=== PATIENT | female | born 1985 | race Asian ===

== ENCOUNTER 2019-06-06 12:16 | Emergency (ER) | payer MEDICAID ==
--- NOTE | 2019-06-06 12:24 | EDM.PDOC ---
ED HPI GENERAL MEDICAL PROBLEM - General Chief Complaint: General Stated Complaint: DIZZINESS, SOB Time Seen by Provider: 06/06/19 12:24 Source of Information: Reports: Patient History Limitations: Reports: No Limitations - History of Present Illness INITIAL COMMENTS - FREE TEXT/NARRATIVE: HISTORY AND PHYSICAL: History of present illness: Patient is a 33-year-old female presents to the ED with complaint of dizziness, chest pain, and shortness of breath since this morning. She states she has boils on her left arm x 3 weeks which she has been treating with topical tumeric paste. She states they have not drained but are painful. She reports subjective fevers. Denies significant past medical history. Denies illicit drug use. Review of systems: As per history of present illness and below otherwise all systems reviewed and negative. Past medical history: As per history of present illness and as reviewed below otherwise noncontributory. Surgical history: As per history of present illness and as reviewed below otherwise noncontributory. Social history: No reported history of drug or alcohol abuse. Family history: As per history of present illness and as reviewed below otherwise noncontributory. Physical exam: General: Patient sitting comfortably in no acute distress and nontoxic appearing HEENT: Atraumatic, normocephalic, pupils reactive, negative for conjunctival pallor or scleral icterus, mucous membranes moist, throat clear, neck supple, nontender, trachea midline. No meningeal signs. Lungs: Clear to auscultation, breath sounds equal bilaterally, chest nontender. Heart: S1S2, regular, negative for clicks, rubs, or overt murmur. Abdomen: Soft, nondistended, nontender. Negative for masses or hepatosplenomegaly. Negative for costovertebral tenderness. No rigidity, rebound , guarding. Pelvis: Stable nontender. Genitourinary: Deferred. Rectal: Deferred. Extremities: There is a fluctuant area to the left forearm just lateral and inferior to the antecubital fossa. Minimal surrounding erythema. Atraumatic, negative for cords or calf pain. Neurovascular unremarkable. Neuro: Awake, alert, oriented. Cranial nerves II through XII unremarkable. Cerebellum unremarkable. Motor and sensory unremarkable throughout. Exam nonfocal. Notes: Nursing staff and cardiac cath lab technologist were unable to get a blood draw. Patient is refusing further attempts at this time. Diagnostics: CBC, CMP, troponin, EKG, CXR, UA, urine hcg left forearm x-ray Therapeutics: Prescriptions: Bactrim Impression: Abscess, cellulitis Plan: Take antibiotic as instructed Follow-up with primary care provider Return to ED as needed as discussed Definitive disposition and diagnosis as appropriate pending reevaluation and review of above. - Related Data Allergies Allergy/AdvReac Type Severity Reaction Status Date / Time No Known Allergies Allergy Verified 06/06/19 12:18 Home Meds: Home Meds ARIPiprazole [Abilify] 10 mg PO DAILY 06/06/19 [History] Citalopram [Citalopram HBr] 40 mg PO DAILY 06/06/19 [History] Gabapentin [Neurontin] 300 mg PO BID 06/06/19 [History] Lisdexamfetamine Dimesylate [Vyvanse] 60 mg PO DAILY 06/06/19 [History] Sulfamethoxazole/Trimethoprim [Bactrim Ds Tablet] 1 each PO BID 7 Days #14 tablet 06/06/19 [Rx] ED ROS GENERAL - Review of Systems Review Of Systems: ROS reveals no pertinent complaints other than HPI. ED EXAM, GENERAL - Physical Exam Exam: See Below (see dictation) Course - Vital Signs Last Recorded V/S: Last Vital Signs Temp 97.6 F 06/06/19 12:20 Pulse 100 06/06/19 12:20 Resp 20 06/06/19 12:20 BP 162/99 H 06/06/19 13:30 Pulse Ox 100 06/06/19 12:20 - Orders/Labs/Meds Orders: Active Orders 24 hr Category Date Time Status EKG Documentation Completion [RC] STAT Care 06/06/19 12:21 Active CBC WITH AUTO DIFF [HEME] Stat Lab 06/06/19 12:29 Ordered COMPREHENSIVE METABOLIC PN,CMP [CHEM] Stat Lab 06/06/19 12:29 Ordered HCG QUALITATIVE,URINE [URCHEM] Stat Lab 06/06/19 13:02 Ordered TROPONIN I [CHEM] Stat Lab 06/06/19 12:29 Ordered UA RFX NIDIA AND CULT IF INDIC [URIN] Stat Lab 06/06/19 13:02 Ordered Sodium Chloride 0.9% [Saline Flush] Med 06/06/19 12:29 Active 10 ml FLUSH ASDIRECTED PRN Sodium Chloride 0.9% [Saline Flush] Med 06/06/19 12:29 Active 2.5 ml FLUSH ASDIRECTED PRN Saline Lock Insert [OM.PC] Stat Oth 06/06/19 12:29 Ordered Medication Orders Sodium Chloride (Saline Flush) 10 ml FLUSH ASDIRECTED PRN PRN Reason: Keep Vein Open Last Admin: 06/06/19 12:56 Dose: 10 ml Sodium Chloride (Saline Flush) 2.5 ml FLUSH ASDIRECTED PRN PRN Reason: Keep Vein Open Last Admin: 06/06/19 12:56 Dose: 2.5 ml Meds: Medications Generic Name Dose Route Start Last Admin Trade Name Freq PRN Reason Stop Dose Admin Sodium Chloride 10 ml 06/06/19 12:29 06/06/19 12:56 Saline Flush FLUSH 10 ml ASDIRECTED PRN Administration Keep Vein Open Sodium Chloride 2.5 ml 06/06/19 12:29 06/06/19 12:56 Saline Flush FLUSH 2.5 ml ASDIRECTED PRN Administration Keep Vein Open Discontinued Medications Generic Name Dose Route Start Last Admin Trade Name Freq PRN Reason Stop Dose Admin Lidocaine HCl 5 ml 06/06/19 14:34 06/06/19 14:45 Xylocaine-Mpf 1% INJECT 06/06/19 14:35 5 ml ONETIME ONE Administration Ondansetron HCl 4 mg 06/06/19 12:53 06/06/19 12:56 Zofran Odt PO 06/06/19 12:54 4 mg ONETIME ONE Administration Departure - Departure Time of Disposition: 14:58 Disposition: Home, Self-Care 01 Condition: Good Clinical Impression: Abscess Clinical Impression: (Ruled Out): Abdominal abscess - Discharge Information Prescriptions: Sulfamethoxazole/Trimethoprim [Bactrim Ds Tablet] 1 each PO BID 7 Days #14 tablet Referrals: PCP,None [Primary Care Provider] - Forms: ED Department Discharge Additional Instructions: The following information is given to patients seen in the emergency department who are being discharged to home. This information is to outline your options for follow-up care. We provide all patients seen in our emergency department with a follow-up referral. The need for follow-up, as well as the timing and circumstances, are variable depending upon the specifics of your emergency department visit. If you don't have a primary care physician on staff, we will provide you with a referral. We always advise you to contact your personal physician following an emergency department visit to inform them of the circumstance of the visit and for follow-up with them and/or the need for any referrals to a consulting specialist. The emergency department will also refer you to a specialist when appropriate. This referral assures that you have the opportunity for follow-up care with a specialist. All of these measure are taken in an effort to provide you with optimal care, which includes your follow-up. Under all circumstances we always encourage you to contact your private physician who remains a resource for coordinating your care. When calling for follow-up care, please make the office aware that this follow-up is from your recent emergency room visit. If for any reason you are refused follow-up, please contact the [facility] Emergency Department at and asked to speak to the emergency department charge nurse. [facility] [address] [place] [address] [id number] [address] [id number] Take antibiotic as instructed Follow-up with primary care provider Return to ED as needed as discussed - My Orders Last 24 Hours: My Active Orders 06/06/19 12:21 EKG Documentation Completion [RC] STAT 06/06/19 12:29 CBC WITH AUTO DIFF [HEME] Stat COMPREHENSIVE METABOLIC PN,CMP [CHEM] Stat TROPONIN I [CHEM] Stat Sodium Chloride 0.9% [Saline Flush] 10 ml FLUSH ASDIRECTED PRN Sodium Chloride 0.9% [Saline Flush] 2.5 ml FLUSH ASDIRECTED PRN Saline Lock Insert [OM.PC] Stat 06/06/19 13:02 HCG QUALITATIVE,URINE [URCHEM] Stat UA RFX NIDIA AND CULT IF INDIC [URIN] Stat - Assessment/Plan Last 24 Hours: My Active Orders 06/06/19 12:21 EKG Documentation Completion [RC] STAT 06/06/19 12:29 CBC WITH AUTO DIFF [HEME] Stat COMPREHENSIVE METABOLIC PN,CMP [CHEM] Stat TROPONIN I [CHEM] Stat Sodium Chloride 0.9% [Saline Flush] 10 ml FLUSH ASDIRECTED PRN Sodium Chloride 0.9% [Saline Flush] 2.5 ml FLUSH ASDIRECTED PRN Saline Lock Insert [OM.PC] Stat 06/06/19 13:02 HCG QUALITATIVE,URINE [URCHEM] Stat UA RFX NIDIA AND CULT IF INDIC [URIN] Stat
[2019-06-06] MEDS ORDERED: Sodium Chloride 0.9% 2.5 ML Syringe FLUSH PRN (12:29)
[2019-06-06] MEDS ORDERED: Sodium Chloride 0.9% 10 ML Syringe FLUSH PRN (12:29)
--- NOTE | 2019-06-06 12:36 | CR ---
INDICATION: Chest pain TECHNIQUE: Chest 1 view. COMPARISON: None. FINDINGS: Cardiovascular and mediastinum: Heart size and vasculature are normal in caliber and appearance. Mediastinum is within normal limits. Lungs and pleural space: Lungs are clear. No sign of infiltrate or mass. No sign of pleural effusion. No pneumothorax. Bones and soft tissues: No significant findings. IMPRESSION: Unremarkable chest. Dictated by: Clarke Witt MD @ 06/06/2019 12:34:56 (Electronically Signed)
[2019-06-06] MEDS ORDERED: Ondansetron 4 MG Tab.DIS PO ONE (12:53)
--- NOTE | 2019-06-06 14:49 | CR ---
Indication: Pain. Swelling. No trauma. Technique: Left forearm two views. Comparison: None. Findings: No acute fracture or dislocation. No suspicious lytic or sclerotic osseous lesion. There are linear radiopaque densities in the soft tissues of the dorsal distal forearm and anterior to the distal humerus, worrisome for foreign bodies. These both measure approximately 5 mm. Soft tissues elsewhere as imaged are unremarkable. Impression: No acute osseous abnormality. Linear radiopaque densities in the distal forearm and anterior to the distal humerus, worrisome for foreign bodies. Discussed with Dr. Dinero at the time of dictation. Dictated by Jimbo Gutierrez MD @ 06/06/2019 2:46:40 PM Dictated by: Jimbo Gutierrez MD @ 06/06/2019 14:46:47 (Electronically Signed)
== END 2019-06-06 15:23 | disposition home or self-care (01) ==
LOC: MW.ED 12:16
DX: L02.414 Cutaneous abscess of left upper limb (principal); L03.114 Cellulitis of left upper limb; R07.9 Chest pain, unspecified; R06.02 Shortness of breath; R42 Dizziness and giddiness
CPT/HCPCS: 71045; 73090; 93005; 99284; A9270; J2001